=== PATIENT | female | born 1955 | race Caucasian/White ===

== ENCOUNTER → 2016-07-06 | Outpatient (CLI) | payer OTHER ==
--- NOTE | 2016-07-06 13:20 | REPMRS ---
Patient History The patient states she had a clinical breast exam in 06/27 Patient is postmenopausal. Family history of breast cancer in mother at age 50 or over. Digital Woman Screen Mammo: July 06, 2016 - Exam #: [id number] Bilateral CC and MLO view(s) were taken. Technologist: Rosa M Enriquez, Technologist Prior study comparison: July 04, 2014, digital woman screen mammo performed at [facility] to [facility]. November 24, 2008, bilateral digital mammo screening bilat performed at [facility]. FINDINGS: There are scattered fibroglandular densities. There has been no change in the appearance of the mammogram from the prior studies. There is a mild amount of residual fibroglandular tissue which is fairly symmetric. There is no interval development of dominant mass, architectural distortion, or clustered microcalcification suggestive of malignancy. ASSESSMENT: BI-RADS/ACR category 1 mammogram. Negative. Recommendation Routine screening mammogram in 1 year (for women over age 40). This mammogram was interpreted with the aid of an FDA-approved computer-aided dectection system. Electronically Signed By: Kulwinder Escalera MD 07/06/16 [id number]
== END ==
LOC: M WHC 10:44
PROVIDERS: ATTEND Nurse Practitioner Women's Health
DX: Z12.31 Encounter for screening mammogram for malignant neoplasm of breast (principal); Z78.0 Asymptomatic menopausal state; Z80.3 Family history of malignant neoplasm of breast

== ENCOUNTER → 2016-07-06 | Outpatient (REF) | payer OTHER | LOC: M SFHCWAGY 11:12 | PROVIDERS: ATTEND Nurse Practitioner Women's Health | DX: Z12.4 Encounter for screening for malignant neoplasm of cervix (principal); N95.2 Postmenopausal atrophic vaginitis ==

== ENCOUNTER 2019-12-19 10:52 | Emergency (ER) | payer MEDICARE ==
[~2019-12-19] VITALS: Ht 162.6 cm; Wt 75.0 kg
--- NOTE | 2019-12-19 11:16 | REPVR ---
PROCEDURE INFORMATION: Exam: CT Head Without Contrast Exam date and time: 12/19/2019 10:58 AM Age: 64 years old Clinical indication: Dizziness; Additional info: Dizzy TECHNIQUE: Imaging protocol: Computed tomography of the head without contrast. Radiation optimization: All CT scans at this facility use at least one of these dose optimization techniques: automated exposure control; mA and/or kV adjustment per patient size (includes targeted exams where dose is matched to clinical indication); or iterative reconstruction. COMPARISON: No relevant prior studies available. FINDINGS: Brain: Normal. No hemorrhage. Unremarkable white matter. No mass effect. Cerebral ventricles: No ventriculomegaly. Bones/joints: Unremarkable. No acute fracture. Paranasal sinuses: Visualized sinuses are unremarkable. No fluid levels. Mastoid air cells: Visualized mastoid air cells are well aerated. Soft tissues: Unremarkable. IMPRESSION: No acute intracranial abnormality. Electronically signed by: Mary Barba On 12/19/2019 11:16:40 AM
[2019-12-19] MEDS ORDERED: MECLIZINE 25 MG TABLET PO ONE (11:30)
[2019-12-19 11:39] LABS: HEMATOCRIT 40.6 % (36.0-47.0); HEMOGLOBIN 13.5 g/dl (12.0-15.5); MEAN CORPUSCULAR HEMOGLOBIN 29.3 pg (27.0-33.0); MEAN CORPUSCULAR HGB CONC 33.3 g/dl (32.0-36.5); MEAN CORPUSCULAR VOLUME 88.3 fl (80.0-96.0); PLATELET COUNT, AUTOMATED 256 10^3/uL (150-450); WHITE BLOOD COUNT 9.8 10^3/uL (4.0-10.0)
[2019-12-19] MEDS ORDERED: MECL1TAB31 PO (12:59)
[2019-12-19] MEDS ORDERED: physical therapy (13:01)
[2019-12-19 13:17] VITALS: BP 150/67
--- NOTE | 2019-12-20 07:19 | ECGEPIP ---
[facility] - ED Test Date: 2019-12-19 Pat Name: SISI HOUSE Department: Room: - Gender: Female Plating Machine Operator: JTracie : [id number] Requested By: Kayy Caruso Order Number: [id number] Reading MD: Lucas Christy Measurements Intervals [place] Rate: 65 P: 4 CA: 152 QRS: -15 QRSD: 104 T: -2 QT: 388 QTc: 404 Interpretive Statements SINUS RHYTHM POOR R WAVE PROGRESSION MODERATE VOLTAGE CRITERIA FOR LVH, CONSIDER NORMAL VARIANT MODERATE INTRAVENTRICULAR CONDUCTION DELAY NO PRIORS FOR COMPARISON Electronically Signed on 12-20-2019 7:19:09 EDT by Lucas Christy
== END 2019-12-19 13:18 | disposition home or self-care (01) ==
LOC: M ED 10:52
DX: H81.10 Benign paroxysmal vertigo, unspecified ear (principal)

== ENCOUNTER 2019-12-26 14:04 | Outpatient (RCR) | payer MEDICARE ==
[~2019-12-26 14:04] MED LIST: MECL1TAB31 PO; physical therapy
== END 2020-01-11 ==
LOC: M PT 14:04
PROVIDERS: ATTEND Emergency Medicine
DX: R42 Dizziness and giddiness (principal)

== ENCOUNTER → 2022-04-28 | Outpatient (REF) | payer MEDICARE | LOC: M SFHCWAGY 12:49 | PROVIDERS: ATTEND Nurse Practitioner Family | DX: Z12.4 Encounter for screening for malignant neoplasm of cervix (principal) | CPT/HCPCS: 87624; G0123 ==

== ENCOUNTER → 2022-04-28 | Outpatient (CLI) | payer MEDICARE | LOC: M WHC 08:17 | PROVIDERS: ATTEND Nurse Practitioner Family | DX: Z12.31 Encounter for screening mammogram for malignant neoplasm of breast (principal) ==

== ENCOUNTER → 2024-01-01 | Outpatient (CLI) | payer MEDICARE, MEDICAID ==
[~2024-01-01] MED LIST changes: +MECL-209 PO; -MECL1TAB31 PO
== END ==
LOC: M WHC 07:32
PROVIDERS: ATTEND Nurse Practitioner Family
DX: Z12.31 Encounter for screening mammogram for malignant neoplasm of breast (principal); R92.323 Mammographic fibroglandular density, bilateral breasts

== ENCOUNTER 2024-04-09 07:20 | Day surgery (SDC) | payer MEDICARE, MEDICAID ==
[~2024-04-09] VITALS: Ht 162.6 cm; Wt 76.1 kg
[2024-04-09] MEDS ORDERED: propofoL 200 MG/20 ML VIAL As Ordered ONE (08:12)
[2024-04-09] MEDS ORDERED: LIDOCAINE 2% 100MG/5ML SDV (FOR ANES.) As Ordered ONE (08:12)
[2024-04-09] MEDS ORDERED: dexmedeTOMIDine (4MCG/ML)200MCG/50ML BTL (PRECEDEX) As Ordered ONE (08:23)
[2024-04-09 08:46] VITALS: TEMP 96.7
[2024-04-09 09:05] VITALS: BP 117/62; O2SAT 97
== END 2024-04-09 09:07 | disposition home or self-care (01) ==
LOC: M OPP 07:20
PROVIDERS: ATTEND Surgery
DX: Z12.11 Encounter for screening for malignant neoplasm of colon (principal); D12.5 Benign neoplasm of sigmoid colon; R19.5 Other fecal abnormalities

== ENCOUNTER → 2024-10-07 | Outpatient (CLI) | payer MEDICARE, MEDICAID | LOC: M RAD 14:27 | PROVIDERS: ATTEND Nurse Practitioner Family | DX: H81.11 Benign paroxysmal vertigo, right ear (principal) ==

== ENCOUNTER → 2024-10-07 | Outpatient (CLI) | payer MEDICARE, MEDICAID | LOC: M RAD 14:29 | PROVIDERS: ATTEND Nurse Practitioner Family | DX: H81.11 Benign paroxysmal vertigo, right ear (principal); E04.2 Nontoxic multinodular goiter; I65.23 Occlusion and stenosis of bilateral carotid arteries ==

== ENCOUNTER → 2024-12-16 | Outpatient (REF) | payer MEDICARE, MEDICAID ==
[2024-12-16 18:01] LABS: CHOLESTEROL LEVEL 314.0 MG/DL (<200); CHOLESTEROL RISK RATIO 5.03 (<5); LDL CHOLESTEROL 207.2 MG/DL (<100); NON-HDL-C 251.6 MG/DL; TRIGLYCERIDES LEVEL 222.0 MG/DL (<150)
[2024-12-16 18:40] LABS: ESTIMATED AVERAGE GLUCOSE 131.0 MG/DL (60-110)
== END ==
LOC: M LAB REF 16:16
PROVIDERS: ATTEND Nurse Practitioner Family
DX: E78.2 Mixed hyperlipidemia (principal); R73.03 Prediabetes